=== PATIENT | male | born 1975 | race Caucasian/White ===

== ENCOUNTER 2018-01-31 10:47 | Inpatient (IN) | payer OTHER ==
[2018-01-31] MEDS: LORazepam 2 MG TAB PO (10:53)
[2018-01-31] MEDS: diphenhydrAMINE INJ 50MG/ML VIAL (J1200) IV (13:40)
[2018-01-31] MEDS ORDERED: ACETAMINOPHEN TAB 650MG DOSE (2X325MG) PO (15:15)
[2018-01-31] MEDS ORDERED: MAALOX 30 ML SUSP *UDC PO (15:15)
[2018-01-31] MEDS ORDERED: MOM 30ML SUSPENSION UDC PO (15:15)
[2018-01-31] MEDS ORDERED: traZODone 50 MG TAB PO (15:15)
[2018-01-31] MEDS: OMEPRAZOLE 20 MG CAP PO (17:24)
[2018-01-31] MEDS: PERCOCET 5MG/325MG TAB PO ×2 (17:25→21:34)
[2018-01-31] MEDS: hydrOXYzine 50 MG TAB PO (18:32)
[2018-01-31] MEDS: ATORVASTATIN 20 MG TAB PO (21:33)
[2018-01-31] MEDS: zolPIDEM TARTRATE 5 MG TAB PO (21:33)
[2018-02-01] MEDS: LEVOTHYROXINE 100MCG TABLET (0.1MG) PO (06:13)
[2018-02-01] MEDS: hydrOXYzine 50 MG TAB PO ×2 (06:34→16:40)
[2018-02-01] MEDS: OMEPRAZOLE 20 MG CAP PO (08:35)
[2018-02-01] MEDS ORDERED: OMEPRAZOLE 20 MG CAP PO (09:00)
[2018-02-01] MEDS ORDERED: OLANZapine 5 MG TAB PO (10:30)
[2018-02-01] MEDS: OLANZapine 10 MG TAB PO (10:52)
[2018-02-01] MEDS: buPROPion **XL** TABLET 150MG (WELLBUTRIN XL) PO (10:52)
[2018-02-01] MEDS: PERCOCET 5MG/325MG TAB PO (17:43)
[2018-02-01] MEDS: ATORVASTATIN 20 MG TAB PO (21:50)
[2018-02-01] MEDS: zolPIDEM TARTRATE 5 MG TAB PO (21:50)
[2018-02-02] MEDS: LEVOTHYROXINE 100MCG TABLET (0.1MG) PO (06:18)
[2018-02-02] MEDS: OMEPRAZOLE 20 MG CAP PO (08:04)
[2018-02-02] MEDS: OLANZapine 10 MG TAB PO ×2 (08:04→17:38)
[2018-02-02] MEDS: PERCOCET 5MG/325MG TAB PO ×2 (08:05→17:40)
[2018-02-02] MEDS: buPROPion **XL** TABLET 150MG (WELLBUTRIN XL) PO (08:05)
[2018-02-02 08:17] LABS: FREE THYROXINE INDEX 2.4 % (1.4-3.8); T UPTAKE 35 % (33-40); THYROXINE (T4) 6.8 UG/DL (4.5-12.0)
[2018-02-02] MEDS: hydrOXYzine 50 MG TAB PO ×2 (13:23→21:25)
[2018-02-02] MEDS: ATORVASTATIN 20 MG TAB PO (21:25)
[2018-02-02] MEDS: zolPIDEM TARTRATE 5 MG TAB PO (21:26)
[2018-02-02] MEDS: PILL CRUSHER/CUTTER 1 EACH XX (21:54)
[2018-02-03] MEDS: LEVOTHYROXINE 100MCG TABLET (0.1MG) PO (06:13)
[2018-02-03] MEDS: OLANZapine 10 MG TAB PO ×2 (06:22→16:35)
[2018-02-03 07:44] LABS: HEMATOCRIT 46.9 % (42.0-52.0); HEMOGLOBIN 15.7 g/dl (13.5-17.5); MEAN CORPUSCULAR HEMOGLOBIN 30.4 pg (27.0-33.0); MEAN CORPUSCULAR HGB CONC 33.5 g/dl (32.0-36.5); MEAN CORPUSCULAR VOLUME 90.9 fl (80.0-96.0); PLATELET COUNT, AUTOMATED 231 10^3/uL (150-450); RED BLOOD COUNT 5.16 10^6/uL (4.30-6.10); RED CELL DISTRIBUTION WIDTH 13.1 % (11.5-14.5); WHITE BLOOD COUNT 7.1 10^3/uL (4.0-10.0)
[2018-02-03 08:26] LABS: ALBUMIN 4.4 GM/DL (3.2-5.2); ALBUMIN/GLOBULIN RATIO 1.29 (1.00-1.93); ALKALINE PHOSPHATASE 90 U/L (45-117); ALT/SGPT 27 U/L (12-78); ANION GAP 5 MEQ/L (8-16); AST/SGOT 22 U/L (7-37); BILIRUBIN,TOTAL 0.8 MG/DL (0.2-1.0); BLOOD UREA NITROGEN 21 MG/DL (7-18); CALCIUM LEVEL 8.8 MG/DL (8.5-10.1); CARBON DIOXIDE LEVEL 28 MEQ/L (21-32); CHLORIDE LEVEL 108 MEQ/L (98-107); CREATININE FOR GFR 1.03 MG/DL (0.70-1.30); GLOMERULAR FILTRATION RATE > 60.0 (>60); GLUCOSE, FASTING 88 MG/DL (70-100); POTASSIUM SERUM 4.3 MEQ/L (3.5-5.1); SODIUM LEVEL 141 MEQ/L (136-145); T UPTAKE 35 % (33-40); THYROXINE (T4) 8.6 UG/DL (4.5-12.0); TOTAL PROTEIN 7.8 GM/DL (6.4-8.2)
[2018-02-03] MEDS: buPROPion **XL** TABLET 150MG (WELLBUTRIN XL) PO (08:56)
[2018-02-03] MEDS: OMEPRAZOLE 20 MG CAP PO (08:56)
[2018-02-03] MEDS: PERCOCET 5MG/325MG TAB PO ×3 (08:57→21:59)
[2018-02-03] MEDS: hydrOXYzine 50 MG TAB PO (12:37)
[2018-02-03] MEDS: ATORVASTATIN 20 MG TAB PO (21:24)
[2018-02-03] MEDS: zolPIDEM TARTRATE 5 MG TAB PO (21:55)
[2018-02-04] MEDS: LEVOTHYROXINE 125MCG TABLET (0.125MG) PO (06:15)
[2018-02-04] MEDS: buPROPion **XL** TABLET 150MG (WELLBUTRIN XL) PO (08:40)
[2018-02-04] MEDS: PERCOCET 5MG/325MG TAB PO (08:40)
[2018-02-04] MEDS: OMEPRAZOLE 20 MG CAP PO (08:40)
[2018-02-04] MEDS: hydrOXYzine 50 MG TAB PO (08:58)
[2018-02-04] MEDS: OLANZapine 10 MG TAB PO ×2 (08:59→10:24)
== END 2018-02-04 12:25 | disposition home or self-care (01) | DRG 751 ==
LOC: M ED 10:47 → M ED INP 15:04 → M PSY 15:54
DX: F33.9 Major depressive disorder, recurrent, unspecified (principal); E03.9 Hypothyroidism, unspecified; E78.00 Pure hypercholesterolemia, unspecified; K21.9 Gastro-esophageal reflux disease without esophagitis; F41.9 Anxiety disorder, unspecified; F17.210 Nicotine dependence, cigarettes, uncomplicated; F12.90 Cannabis use, unspecified, uncomplicated; G47.00 Insomnia, unspecified; Z81.1 Family history of alcohol abuse and dependence; Z81.8 Family history of other mental and behavioral disorders; Z79.899 Other long term (current) drug therapy; Z63.5 Disruption of family by separation and divorce; Z91.14 Patient's other noncompliance with medication regimen; Z79.891 Long term (current) use of opiate analgesic